=== PATIENT | female | born 1950 ===

== ENCOUNTER 2017-07-21 10:33 | Emergency (ER) | payer MEDICARE, OTHER ==
[2017-07-21 10:46] VITALS: BP 165/95; PULSE 101; RESP 18; TEMP 97.7; O2SAT 100
--- NOTE | 2017-07-21 11:07 | C.PDOC ---
History Of Present Illness L EYE PAIN REDNESS X 5 DAYS. NO VISION LOSS. NO TRAUMA, CONTACTS. EXAM HEENT +L EYE CONJ ERYTHEMA W EXCESSIVE WATERING. +PHOTOPHOBIA. 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 Seen by Provider: 07/21/17 11:02 Chief Complaint (Nursing): Eye Problem History Per: Patient History/Exam Limitations: no limitations Onset/Duration Of Symptoms: Days Current Symptoms Are (Timing): Still Present Severity: Moderate Past Medical History Reviewed: Historical Data, Nursing Documentation, Vital Signs Vital Signs: Last Vital Signs Temp 97.7 F 07/21/17 10:43 Pulse 101 H 07/21/17 10:43 Resp 18 07/21/17 10:43 BP 165/95 H 07/21/17 10:43 Pulse Ox 100 07/21/17 20:52 - Medical History PMH: Osteoporosis Surgical History: No Surg Hx Family History: States: No Known Family Hx - Social History Hx Alcohol Use: No Hx Substance Use: No - Immunization History Hx Tetanus Toxoid Vaccination: No Hx Influenza Vaccination: Yes Hx Pneumococcal Vaccination: No Review Of Systems Except As Marked, All Systems Reviewed And Found Negative. Eyes: Positive for: Pain (left eye), Redness (left eye), Other (no trauma, contacts). Negative for: Vision Change Physical Exam - Physical Exam Appears: Non-toxic, No Acute Distress Skin: Normal Color, Warm Head: Atraumatic, Normacephalic Eye(s): bilateral: Normal Inspection, PERRL, EOMI, left: Photophobia, Other ( conjunctivitis, erythema with excessive watering) Ear(s): Bilateral: Normal Nose: Normal Oral Mucosa: Moist Chest: Symmetrical Extremity: Normal ROM Neurological/Psych: Oriented x3, Normal Speech, Normal Cognition, Normal Motor, Normal Sensation ED Course And Treatment O2 Sat by Pulse Oximetry: 100 Disposition Counseled Patient/Family Regarding: Diagnosis, Need For Followup, Rx Given - Disposition Referrals: Jose Carlos Munson [Staff Provider] - Disposition: HOME/ ROUTINE Disposition Time: 11:33 Condition: IMPROVED Prescriptions: Acetaminophen/Codeine [Tylenol/Codeine 300 MG/30 MG] 1 tab PO Q4H #12 tab Ciprofloxacin 0.3% [Ciloxan 0.3% Ophth SOLN] 2 drop OD Q2 #1 bottle Ibuprofen [Motrin] 600 mg PO Q6 #30 tab Instructions: Corneal Abrasion (ED) Forms: [employer] (Italian) Print Language: UKRAINIAN - Clinical Impression Clinical Impression: Corneal abrasion - Scribe Statement The provider has reviewed the documentation as recorded by the Scribe Ashley Brizuela Provider Attestation: All medical record entries made by the Scribe were at my direction and personally dictated by me. I have reviewed the chart and agree that the record accurately reflects my personal performance of the history, physical exam, medical decision making, and the department course for this patient. I have also personally directed, reviewed, and agree with the discharge instructions and disposition. Procedures - Eye Procedure Alcaine Drops Administered: Yes (50) Eye Irrigated w/ Saline (ccs): 10 Progress: +CORNEAL ABRASION ACROSS MIDDLE LENS. NO FB. PT TOLERATED WELL
[2017-07-21] MEDS ORDERED: Tetracaine 0.5% Ophth (OR ONLY) OU STA (11:09)
[2017-07-21] MEDS ORDERED: Fluorescein 1 mg Ophthalmic Strip OU STA (11:09)
[2017-07-21] MEDS ORDERED: Fluorescein 1 mg Ophthalmic Strip ONE (11:23)
[2017-07-21] MEDS ORDERED: Tetracaine 0.5% Ophth (OR ONLY) ONE (11:24)
== END 2017-07-21 11:42 | disposition home or self-care (01) ==
LOC: C.ER 10:33
DX: S05.02XA Injury of conjunctiva and corneal abrasion without foreign body, left eye, initial encounter (principal); X58.XXXA Exposure to other specified factors, initial encounter